=== PATIENT | female | born 1950 | race Caucasian/White ===

== ENCOUNTER 2018-09-26 11:45 | Outpatient (CLI) | payer MEDICARE, SELFPAY ==
[2018-09-26 13:43] LABS: Cholesterol 217 mg/dL (50-200); HDL Cholesterol 84 mg/dL (40-60); LDL CHOLESTEROL 124 mg/dL (<100); Triglyceride 37 mg/dL (30-150)
== END 2018-09-26 12:05 ==
PROVIDERS: PCP Emergency Medicine; Visit Provider Emergency Medicine
DX: I10 Essential (primary) hypertension (principal)
CPT/HCPCS: 36415; 80061; 83721

== ENCOUNTER 2019-07-13 15:21 | Outpatient (CLI) | payer MEDICARE, SELFPAY ==
[2019-07-13 15:47] LABS: Abs Immature Grans 0.01 k/cumm (0.0-0.09); Absolute Basophil Count 0.03 k/cumm (0.0-0.2); Absolute Eosinophil Count 0.14 k/cumm (0.0-0.7); Absolute Lymphocyte Count 1.68 k/cumm (1.2-3.4); Absolute Monocyte Count 0.59 k/cumm (0.11-0.7); Absolute Neutrophil Count 3.52 k/cumm (1.2-6.7); Basophils % 0.5; Eosinophils % 2.3; HCT 37.4 % (36.0-46.0); HGB 12.6 g/dL (12.0-15.5); Immature Grans % 0.2; Lymphocytes % 28.1; Mean Corp. HGB Concentration 33.7 g/dL (32.0-36.0); Mean Corpuscular Hemoglobin 31.4 pg (27.0-33.0); Mean Corpuscular Volume 93.3 fL (80-95); Mean Platelet Volume 9.9 fL (8.0-11.0); Monocytes % 9.9; Platelet Count 317 x1000/uL (130-400); RBC 4.01 m/cumm (4.00-5.20); RBC Distribution Width 12.9 % (11.7-14.6); White Blood Cell Count 5.97 k/cumm (4.4-10.8)
[2019-07-13 16:30] LABS: ALT 30 U/L (14-59); AST 22 U/L (15-37); Albumin 3.7 g/dL (3.4-5.0); Alkaline Phosphatase 81 U/L (46-116); Anion Gap 8.4 mmol/L (3-11); BUN 22 mg/dL (7-18); Bilirubin, Total 0.1 mg/dL (0.2-1.0); C-Reactive Protein 0.09 mg/dL (0.0-0.3); CO2 26.6 mmol/L (21.0-32.0); CREATININE 0.73 mg/dL (0.55-1.02); Calcium 8.7 mg/dL (8.5-10.1); Chloride 106 mmol/L (98-107); Glucose 102 mg/dL (70-100); Sodium 141 mmol/L (136-145); Total Protein 6.8 g/dL (6.4-8.2)
== END 2019-07-13 15:41 ==
PROVIDERS: PCP Emergency Medicine; Visit Provider Emergency Medicine
DX: R21 Rash and other nonspecific skin eruption (principal)
CPT/HCPCS: 36415; 80053; 85025; 86140

== ENCOUNTER 2021-07-03 11:34 | Outpatient (CLI) | payer MEDICARE, SELFPAY ==
--- NOTE | 2021-07-03 10:45 | DI.RAD_ITS ---
Exam(s) XR KNEE RT 3V AP,LAT,TAY EXAM: XR KNEE RT 3V AP,LAT,TAY CLINICAL HISTORY: recent onset medial nodule 2.5cm in diam. non tend R22.41. TECHNIQUE: 2D digital imaging was performed of the right knee. Four views obtained. AP, lateral and PA tunnel views were obtained. COMPARISON: None. FINDINGS: BONES: No acute fracture is present. No bony destructive lesion is seen. JOINTS: There is loss of the patellar joint space with bone on bone. No joint effusion is seen. SOFT TISSUE: Normal. IMPRESSION: Marked narrowing of the patellofemoral joint with [id number]. DATA REPOSITORY: RADIATION DOSE DELIVERED:
== END 2021-07-03 11:54 ==
PROVIDERS: PCP Emergency Medicine; Visit Provider Family Medicine
DX: R22.41 Localized swelling, mass and lump, right lower limb (principal); M25.561 Pain in right knee; M17.11 Unilateral primary osteoarthritis, right knee
CPT/HCPCS: 73562

== ENCOUNTER 2022-03-07 02:38 | Outpatient (CLI) | payer MEDICARE, SELFPAY ==
[2022-03-07 12:19] LABS: HCT 37.9 % (36.0-46.0); MCH 31.9 pg (27.0-33.0); MCHC 34.3 % (32.0-36.0); MCV 93 fL (80-95); MPV 10.4 fL (8.0-11.0); Platelet Count 299 10^3/uL (130-400); RBC 4.07 10^6/uL (3.93-5.22); RDW 12.9 % (11.7-14.6); RDW-SD 44.4 fL; WBC 4.96 10^3/uL (4.4-10.8)
[2022-03-07 12:49] LABS: ALT 29 U/L (14-59); AST 27 U/L (15-37); Albumin 3.6 g/dL (3.4-5.0); Alkaline Phosphatase 85 U/L (46-116); Anion Gap 9.8 mmol/L (3-11); BUN 19 mg/dL (7-18); Bilirubin, Total 0.4 mg/dL (0.2-1.0); CO2 27.2 mmol/L (21.0-32.0); CREATININE 0.7 mg/dL (0.55-1.02); Calcium 8.6 mg/dL (8.5-10.1); Calculated LDL 135 mg/dL (<100); Chloride 105 mmol/L (98-107); Cholesterol 222 mg/dL (<200); Glucose 100 mg/dL (74-106); HDL Cholesterol 81 mg/dL (40-60); Potassium 4.3 mmol/L (3.5-5.1); Sodium 142 mmol/L (136-145); TSH (W/Ref FT4) 2.57 uIU/mL (0.36-3.74); Total Protein 7.1 g/dL (6.4-8.2); Triglyceride 32 mg/dL (<150)
== END 2022-03-07 02:39 | disposition home or self-care (01) ==
LOC: LOS 02:38
PROVIDERS: PCP Nurse Practitioner Family; Visit Provider Family Medicine
DX: I10 Essential (primary) hypertension (principal); Z13.6 Encounter for screening for cardiovascular disorders
CPT/HCPCS: 36415; 80053; 80061; 85027; 84443